=== PATIENT | female | born 1990 | race Caucasian/White ===

== ENCOUNTER 2016-07-23 16:42 | Emergency (ER) ==
[2016-07-23 16:55] VITALS: BP 136/75; TEMP 99.6
[2016-07-23 17:16] LABS: BASOPHILS % (AUTO) 0.4 % (0.0-3.0); EOSINOPHILS # (AUTO) 0.2 K/ul (0.0-0.7); HEMATOCRIT 38.6 % (37.0-47.0); HEMOGLOBIN 13.1 g/dl (12.0-16.0); IMMATURE GRANULOCYTE % (AUTO) 0.5 % (0.0-5.0); LYMPHOCYTES # (AUTO) 1.4 K/uL (0.60-3.4); LYMPHOCYTES % (AUTO) 16.4 (10.0-50.0); MEAN CORPUSCULAR HEMOGLOBIN 30.4 pg (27.0-31.0); MEAN CORPUSCULAR HGB CONC 33.9 (31.8-35.4); MEAN CORPUSCULAR VOLUME 89.6 fl (81.0-99.0); MONOCYTES % (AUTO) 11.9 (0-10); NEUTROPHILS # (AUTO) 5.9 K/ul (2.0-6.9); NEUTROPHILS % (AUTO) 68.8; PLATELET COUNT 353 10^3/uL (140-440); RED BLOOD COUNT 4.31 10^6/ul (4.20-5.40); WHITE BLOOD COUNT 8.52 K/ul (4.6-10.2)
[2016-07-23 17:21] LABS: FLU INTERNAL QC INTERNAL QC VALID; RAPID FLU A POSITIVE (NEGATIVE); RAPID FLU B NEGATIVE (NEGATIVE)
[2016-07-23 17:26] LABS: BILIRUBIN,URINE Negative (NEGATIVE); KETONES,URINE Negative (NEGATIVE); LEUKOCYTE ESTERASE ,URINE 1+ (NEGATIVE); NITRITE,URINE Negative (NEGATIVE); PH,URINE 5.5 (5-9); PROTEIN,URINE Negative (NEGATIVE); URINE, BLOOD Trace-lysed (NEGATIVE)
[2016-07-23 17:29] LABS: ADD URINE MICROSCOPIC YES; URINE PREGNANCY INTERNAL QC INTERNAL QC VALID
[2016-07-23 17:38] LABS: ALBUMIN 3.7 g/dL (3.4-5.0); ALBUMIN/GLOBULIN RATIO 0.8; ANION GAP 12.9; BILIRUBIN,TOTAL 0.56 mg/dL (0.00-1.20); BUN/CREATININE RATIO 8.51; CALCIUM 9.4 mg/dL (8.2-10.2); CREATININE 0.94 mg/dL (0.60-1.30); POTASSIUM 3.9 mmol/L (3.5-5.10); TOTAL PROTEIN 8.3 g/dL (6.4-8.2)
--- NOTE | 2016-07-23 17:45 | DI ---
Exam: Two-view chest x-ray. Date: 07/23/2016. Comparison: None. HISTORY: Cough and fever. FINDINGS: The osseous structures are normal. The lungs are clear with calcified granulomas. The c ardiac silhouette and pulmonary vasculature are normal. Impression: No acute intrathoracic findings. Old granulomatous disease.
--- NOTE | 2016-07-23 18:04 | ED.PDOC ---
General ED Provider: Dr. SUDARSHAN ALEXANDER Chief Complaint: Cough Stated Complaint: cough Time Seen by Physician: 17:00 Mode of Arrival: Walk-In Information Source: Patient Exam Limitations: No limitations Primary Care Provider: NELLIE FOWLER Nursing and Triage Documentation Reviewed and Agree: Yes EENT Complaint Exam - Throat Complaint/Exam Symptoms Are: Still present Timimg: Constant Initial Severity: Mild Current Severity: Mild Alleviating: Reports: None Associated Signs and Symptoms: Reports: Nasal congestion Uvula Midline: Yes Domenica-tonsillar Fluctuence: No Scarlatinaform Rash Present: No Stridor Present: No Sinus Tenderness Present: No Tonsillar Hypertrophy Present: No Tonsillar Exudate Present: No Domenica-tonsillar Swelling Present: No Adenopathy Present: No Review of Systems - Review Of Systems Constitutional: Reports: Fever, Malaise, Weakness Eyes: Reports: No symptoms Ears, Nose, Mouth, Throat: Reports: Throat pain Respiratory: Reports: Cough Cardiac: Reports: No symptoms GI: Reports: No symptoms : Reports: No symptoms Musculoskeletal: Reports: No symptoms Skin: Reports: No symptoms Neurological: Reports: No symptoms Endocrine: Reports: No symptoms Hematologic/Lymphatic: Reports: No symptoms All Other Systems: Reviewed and Negative Past Medical History - Past Medical History Previously Healthy: Yes Endocrine: Reports: None Cardiovascular: Reports: None Respiratory: Reports: None Hematological: Reports: None Gastrointestinal: Reports: None Genitourinary: Reports: None Neuro/Psych: Reports: Anxiety, Depression Musculoskeletal: Reports: None Cancer: Reports: None Last Menstrual Period: jun 27 - Surgical History General Surgical History: Reports: None - Family History Family History: Reports: Unknown - Social History Smoking Status: Never smoker Hx Substance Use: No Alcohol Screening: None Physical Exam - Physical Exam Appearance: Well-appearing, No pain distress, Well-nourished Eyes: MICHAEL, EOMI, Conjunctiva clear ENT: Ears normal, Nose normal, Oropharynx normal Respiratory: Airway patent, Breath sounds clear, Breath sounds equal, Respirations nonlabored Cardiovascular: RRR, Pulses normal, No rub, No murmur GI/: Soft, Nontender, No masses, Bowel sounds normal, No Organomegaly Musculoskeletal: Normal strength, ROM intact, No edema, No calf tenderness Skin: Warm, Dry, Normal color Neurological: Sensation intact, Motor intact, Reflexes intact, Cranial nerves intact, Alert, Oriented Psychiatric: Affect appropriate, Mood appropriate Critical Care Note - Critical Care Note Total Time (mins): 0 Course - Course Hematology/Chemistry: 07/23/16 17:00 07/23/16 17:00 Orders, Labs, Meds: Lab Review 07/23/16 07/23/16 07/23/16 16:55 17:00 17:12 WBC 8.52 RBC 4.31 Hgb 13.1 Hct 38.6 MCV 89.6 MCH 30.4 MCHC 33.9 RDW Coeff of Radha 12.6 Plt Count 353 Immature Gran % (Auto) 0.5 Neut % (Auto) 68.8 Lymph % (Auto) 16.4 Piatt % (Auto) 11.9 H Eos % (Auto) 2.0 Baso % (Auto) 0.4 Immature Gran # (Auto) 0.0 Neut # 5.9 Lymph # 1.4 [place]att # 1.0 Eos # 0.2 Baso # 0.0 Sodium 138 Potassium 3.9 Chloride 106 Carbon Dioxide 23 Anion Gap 12.9 BUN 8 Creatinine 0.94 Estimated GFR (MDRD) 72.00 BUN/Creatinine Ratio 8.51 Glucose 91 Calcium 9.4 Total Bilirubin 0.56 AST 19 ALT 19 Alkaline Phosphatase 76 Total Protein 8.3 H Albumin 3.7 Globulin 4.6 Albumin/Globulin Ratio 0.80 Urine Color Yellow Urine Clarity Slightly Urine pH 5.5 Ur Specific [place] 1.025 Urine Protein Negative Urine Glucose (UA) Negative Urine Ketones Negative Urine Blood Trace-lysed Urine Nitrite Negative Urine Bilirubin Negative Urine Urobilinogen 0.2 Ur Leukocyte Esterase 1+ Urine Microscopic WBC 5-10 Ur Squamous Epith Cells 30-50 Urine Test Negative Influenza A (Rapid) Positive H Influenza B (Rapid) Negative Orders Category Date Time Status BLOOD CULTURE Stat LAB 07/23/16 17:00 Received CBC W/ AUTO DIFF Stat LAB 07/23/16 17:00 Completed COMPREHENSIVE METABOLIC PANEL Stat LAB 07/23/16 17:00 Completed MOLECULAR GROUP A STREP Stat LAB 07/23/16 16:55 Results RAPID FLU A/B Stat LAB 07/23/16 16:55 Completed STREP SCREEN Stat LAB 07/23/16 16:55 Results URINALYSIS C & S IF INDICATED Stat LAB 07/23/16 17:12 Completed URINE CULTURE Routine LAB 07/23/16 17:12 Received URINE Stat LAB 07/23/16 17:12 Completed CHEST, 2 VIEWS PA & LAT Stat RADS 07/23/16 16:47 Completed Vital Signs: Temp Pulse Resp BP Pulse Ox 07/23/16 16:43 99.6 F 112 H 20 136/75 98 Departure - Departure Time of Disposition: 18:03 Disposition: HOME SELF-CARE Discharge Problem: Cough, Influenza A Instructions: Influenza (ED) Condition: Good Pt referred to PMD for follow-up: No Additional Instructions: Please call your Family Physician as soon as possible to schedule a follow-up appointment. Allergies/Adverse Reactions: Allergies No Known Allergies Allergy (Verified 07/23/16 16:47) Home Medications: Ambulatory Orders 1 [No Reported Medications] 07/23/16 Disposition Discussed With: Patient
== END 2016-07-23 18:18 | disposition home or self-care (01) ==
LOC: ED 16:42
DX: J09.X2 Influenza due to identified novel influenza A virus with other respiratory manifestations (principal)
CPT/HCPCS: 36415; 80053; 81001; 81025; 85025; 87040; 87086; 87651; 87804; 87880; 99283

== ENCOUNTER 2017-06-22 14:28 | Emergency (ER) ==
[2017-06-22 14:31] VITALS: BP 147/89; TEMP 98.4; BMI 36.8
--- NOTE | 2017-06-22 16:10 | DI ---
EXAM: Three views of the left ankle. History: Left ankle pain. Findings: No acute fracture or dislocation. No abnormal calcifications or radiopaque foreign bodies . Joint spaces are preserved. Impression: No acute osseous abnormality
--- NOTE | 2017-06-22 16:14 | DI ---
EXAM: Three views of the left foot HISTORY: Left foot pain. COMPARISON: Left ankle x-rays same day FINDINGS: There is no lytic or blastic lesion of the left foot. There is no displaced fracture or di slocation. The joint spaces are unremarkable. The arch is maintained. Soft tissues are unremarkabl e. IMPRESSION: No acute abnormality or displaced fracture of the left foot.
--- NOTE | 2017-06-22 16:24 | ED.PDOC ---
General ED Provider: Dr. SUDARSHAN ALEXANDER Chief Complaint: Ankle Pain/Injury Stated Complaint: ANKLE FOOT PAIN LEFT SIDED Time Seen by Physician: 14:30 Mode of Arrival: Walk-In Information Source: Patient Exam Limitations: No limitations Primary Care Provider: ALBERTO PECK Nursing and Triage Documentation Reviewed and Agree: Yes Reviewed sepsis parameters & appropriate labs ordered?: Yes System Inflammatory Response Syndrome: Not Applicable Sepsis Protocol: For patient's 13 years and over: Temp is 96.8 and below OR 101 and greater Pulse >90 BPM Resp >20/minute Acutely Altered Mental Status Are patient's symptoms suggestive of a new infection, such as: -Pneumonia -Skin, Soft Tissue -Endocarditis -UTI -Bone, Joint Infection -Implantable Device -Acute Abdominal Infection -Wound Infection -Meningitis -Blood Stream Catheter Infection -Unknown System Inflammatory Response Syndrome: Not Applicable Musculoskeletal Complaint Exam - Ankle/Foot Complaint/Exam Location of Injury: Reports: Left, Ankle, Foot Mechanism of Injury: Reports: No known trauma Onset/Duration: CHRONIC WORSE 3 DAYS Symptoms Are: Reports: Still present Onset of Pain: Reports: Weeks Initial Severity: Mild Current Severity: Mild Location: Reports: Discrete Character: Reports: Aching Alleviating: Reports: Rest Aggravating: Reports: Movement Able to Bear Weight: Yes Associated Signs and Symptoms: Denies: Swelling, Redness, Bruising, Fever, Weakness, Numbness, Tingling Gout Risk Factors: Reports: None Achilles Tendon Abnormality: No Tenderness: Present: Lateral malleolus, Midfoot Limited Range of Motion: Present: Inversion Differential Diagnosis: Closed Fracture Review of Systems - Review Of Systems Constitutional: Reports: No symptoms Eyes: Reports: No symptoms Ears, Nose, Mouth, Throat: Reports: No symptoms Respiratory: Reports: No symptoms Cardiac: Reports: No symptoms GI: Reports: No symptoms : Reports: No symptoms Musculoskeletal: Reports: Joint pain Skin: Reports: No symptoms Neurological: Reports: No symptoms Endocrine: Reports: No symptoms Hematologic/Lymphatic: Reports: No symptoms All Other Systems: Reviewed and Negative Past Medical History - Past Medical History Previously Healthy: Yes Endocrine: Reports: None Cardiovascular: Reports: None Respiratory: Reports: None Hematological: Reports: None Gastrointestinal: Reports: None Genitourinary: Reports: None Neuro/Psych: Reports: Anxiety, Depression Musculoskeletal: Reports: None Cancer: Reports: None Last Menstrual Period: now - Surgical History General Surgical History: Reports: None - Family History Family History: Reports: Unknown - Social History Smoking Status: Never smoker Hx Substance Use: No Alcohol Screening: None Physical Exam - Physical Exam Appearance: Well-appearing, No pain distress, Well-nourished Eyes: MICHAEL, EOMI, Conjunctiva clear ENT: Ears normal, Nose normal, Oropharynx normal Respiratory: Airway patent, Breath sounds clear, Breath sounds equal, Respirations nonlabored Cardiovascular: RRR, Pulses normal, No rub, No murmur GI/: Soft, Nontender, No masses, Bowel sounds normal, No Organomegaly Musculoskeletal: Normal strength, ROM intact, No edema, No calf tenderness Skin: Warm, Dry, Normal color Neurological: Sensation intact, Motor intact, Reflexes intact, Cranial nerves intact, Alert, Oriented Psychiatric: Affect appropriate, Mood appropriate Interpretation - Radiology Interpretation Radiology Interpretation By: Radiologist Radiology Results: No acute changes Critical Care Note - Critical Care Note Total Time (mins): 0 Course - Course Orders, Labs, Meds: Orders Category Date Time Status ANKLE, LEFT MIN 3 VIEWS Stat RADS 06/22/17 15:51 Completed FOOT, LEFT 3 VIEWS Stat RADS 06/22/17 15:51 Completed Vital Signs: Temp Pulse Resp BP Pulse Ox 06/22/17 14:29 98.4 F 92 H 20 147/89 H 98 Departure - Departure Time of Disposition: 16:24 Disposition: HOME SELF-CARE Discharge Problem: Ankle pain Instructions: Arthralgia (ED), Ankle Sprain (ED) Condition: Good Pt referred to PMD for follow-up: Yes IPMP verified?: Yes Additional Instructions: Please call your Family Physician as soon as possible to schedule a follow-up appointment. Allergies/Adverse Reactions: Allergies No Known Allergies Allergy (Verified 06/22/17 14:31) Home Medications: Ambulatory Orders Norelgestromin/Ethin.estradiol [Xulane Patch] 1 each TD WEEKLY 06/22/17
== END 2017-06-22 16:49 | disposition home or self-care (01) ==
LOC: ED 14:28
DX: M25.572 Pain in left ankle and joints of left foot (principal)
CPT/HCPCS: 99283

== ENCOUNTER 2017-09-05 16:01 | Outpatient (CLI) | END 2017-09-05 16:02 | disposition home or self-care (01) | LOC: FCC-LAB 16:01 | PROVIDERS: ATTEND Family Medicine | DX: R10.13 Epigastric pain (principal) | CPT/HCPCS: 36415; 80053; 83690; 84443; 85025 ==

== ENCOUNTER 2017-11-06 18:55 | Emergency (ER) ==
[2017-11-06] MEDS ORDERED: SODIUM CHLORIDE 1,000 ML IV STA ×2 (18:57)
[2017-11-06 19:19] VITALS: BP 80/66; TEMP 97.7; BMI 40.4
--- NOTE | 2017-11-06 20:50 | CT ---
EXAM: CT head without contrast. HISTORY: Syncope. PROCEDURE: Contiguous axial CT images of the head without contrast with coronal and sagittal reforma ts. FINDINGS: The ventricles and basal cisterns are normal in size and configuration. No evidence of ma ss or midline shift. No intracranial hemorrhage or evidence of large vessel infarct. No extra-axial fluid collection. The paranasal sinuses and mastoid air cells are well-aerated and normal in appear ance. Impression: Negative CT of the head.
--- NOTE | 2017-11-06 20:55 | ED.PDOC ---
General ED Provider: Dr. CRISTIANO MARTINEZ-ER Chief Complaint: Syncope Stated Complaint: i donated plasma today--ghada been weak and dizzy and passed out since Time Seen by Physician: 19:15 Mode of Arrival: Walk-In Information Source: Patient Exam Limitations: No limitations Primary Care Provider: ALBERTO EPCK Nursing and Triage Documentation Reviewed and Agree: Yes Does patient meet sepsis criteria?: No If yes, has appropriate treatment been initiated?: No System Inflammatory Response Syndrome: Not Applicable Sepsis Protocol: For patient's 13 years and over: Temp is 96.8 and below OR 101 and greater Pulse >90 BPM Resp >20/minute Acutely Altered Mental Status Are patient's symptoms suggestive of a new infection, such as: -Pneumonia -Skin, Soft Tissue -Endocarditis -UTI -Bone, Joint Infection -Implantable Device -Acute Abdominal Infection -Wound Infection -Meningitis -Blood Stream Catheter Infection -Unknown Neurological Complaint Exam - Syncope/Near Syncope Complaint/Exam Onset/Duration: today Symptoms Are: Still present Number of Episodes: 1 Episodes Witnessed: Yes Loss of Consciousness: Yes Associated Head Trauma: No Aggravating: None Alleviating: Reports: Position change Associated Signs and Symptoms: Reports: Lightheadedness, Dizziness, Weakness GI Bleed Risk Factors: Reports: None Dysrhythmia Risk Factors: Reports: None Related Surgical History: Reports: None JVD Present: No Carotid Bruit Present: No Rectal Heme Positive: No Nystagmus Present: No Gag Reflex Present: No Meningeal Signs Positive: No Focal Weakness: Present: None Focal Sensory Loss: Present: None Gait: Normal [id number]: Normal Findings Romberg Test Positive: No Babinski Sign: Negative Right, Negative Left Heel to Toe Normal: No Steve-Hallpike Test Positive: No Differential Diagnoses: Dysrhythmia, Other Quality Indicator For Non-Traumatic Chest Pain/Syncope: EKG Performed Review of Systems - Review Of Systems Constitutional: Reports: No symptoms Eyes: Reports: No symptoms Ears, Nose, Mouth, Throat: Reports: No symptoms Respiratory: Reports: No symptoms Cardiac: Reports: Syncope GI: Reports: No symptoms : Reports: No symptoms Musculoskeletal: Reports: No symptoms, Muscle pain Skin: Reports: No symptoms Neurological: Reports: No symptoms Endocrine: Reports: No symptoms Hematologic/Lymphatic: Reports: No symptoms All Other Systems: Reviewed and Negative Past Medical History - Past Medical History Previously Healthy: Yes Endocrine: Reports: None Cardiovascular: Reports: None Respiratory: Reports: None Hematological: Reports: None Gastrointestinal: Reports: None Genitourinary: Reports: None Neuro/Psych: Reports: Anxiety, Depression Musculoskeletal: Reports: None Cancer: Reports: None Last Menstrual Period: 11/06/17 - Surgical History General Surgical History: Reports: None - Family History Family History: Reports: Unknown - Social History Smoking Status: Never smoker Hx Substance Use: No Alcohol Screening: None - Immunizations Tetanus Shot up to Date: Yes Physical Exam - Physical Exam Appearance: Well-appearing, No pain distress, Well-nourished Eyes: MICHAEL, EOMI, Conjunctiva clear ENT: Ears normal, Nose normal, Oropharynx normal Neck: Supple Respiratory: Airway patent, Breath sounds clear, Breath sounds equal, Respirations nonlabored Cardiovascular: RRR GI/: Soft, Nontender, No masses, Bowel sounds normal, No Organomegaly Musculoskeletal: Normal strength, ROM intact, No edema, No calf tenderness Skin: Warm, Dry, Normal color Neurological: Sensation intact, Motor intact, Reflexes intact, Cranial nerves intact, Alert, Oriented Psychiatric: Affect appropriate, Mood appropriate Interpretation - Radiology Interpretation Radiology Interpretation By: Radiologist Radiology Results: Negative Exam Interpreted: CT Scan - EKG Interpretation Time of EKG #1: 20:55 Rate: Normal Rhythm: Sinus Ectopy: None Vickery: NL ST Segment: Normal Interpretation: nsr Re-Evaluation - Re-Evaluation Time of Re-Evaluation: 20:56 Status: Improved Vital Signs Stable: Yes Pain Level: 0 Appearance: NAD Lungs: Clear Skin: Warm and Dry Neuro: Alert and Oriented X3 CV: RRR Critical Care Note - Critical Care Note Total Time (mins): 0 Course - Course Hematology/Chemistry: 11/06/17 19:07 11/06/17 19:07 Orders, Labs, Meds: Lab Review 11/06/17 11/06/17 11/06/17 19:07 19:07 19:07 WBC 18.44 H RBC 4.51 Hgb 13.8 Hct 39.8 MCV 88.2 MCH 30.6 MCHC 34.7 RDW Coeff of Radha 12.5 Plt Count 352 Immature Gran % (Auto) 0.3 Neut % (Auto) 84.8 Lymph % (Auto) 11.2 [place] % (Auto) 3.3 Eos % (Auto) 0.1 Baso % (Auto) 0.3 Immature Gran # (Auto) 0.1 Neut # (Auto) 15.6 H Lymph # (Auto) 2.1 [place] # (Auto) 0.6 Eos # (Auto) 0.0 Baso # (Auto) 0.1 Sodium 136 Potassium 3.6 Chloride 109 H Carbon Dioxide 19 L Anion Gap 11.6 BUN 13 Creatinine 0.70 Estimated GFR (MDRD) 100.00 BUN/Creatinine Ratio 18.57 Glucose 148 H Calcium 8.5 Total Bilirubin 0.5 AST 13 L ALT 16 Alkaline Phosphatase 46 Total Creatine Kinase 44 Troponin I < 0.0100 Total Protein 6.6 Albumin 2.9 L Globulin 3.7 Albumin/Globulin Ratio 0.78 Serum , Qual Negative Urine Color Urine Clarity Urine pH Ur Specific [place] Urine Protein Urine Glucose (UA) Urine Ketones Urine Blood Urine Nitrite Urine Bilirubin Urine Urobilinogen Ur Leukocyte Esterase 11/06/17 20:25 WBC RBC Hgb Hct MCV MCH MCHC RDW Coeff of Radha Plt Count Immature Gran % (Auto) Neut % (Auto) Lymph % (Auto) [place] % (Auto) Eos % (Auto) Baso % (Auto) Immature Gran # (Auto) Neut # (Auto) Lymph # (Auto) [place] # (Auto) Eos # (Auto) Baso # (Auto) Sodium Potassium Chloride Carbon Dioxide Anion Gap BUN Creatinine Estimated GFR (MDRD) BUN/Creatinine Ratio Glucose Calcium Total Bilirubin AST ALT Alkaline Phosphatase Total Creatine Kinase Troponin I Total Protein Albumin Globulin Albumin/Globulin Ratio Serum , Qual Urine Color Yellow Urine Clarity Clear Urine pH 5.5 Ur Specific [place] 1.020 Urine Protein Negative Urine Glucose (UA) Negative Urine Ketones Negative Urine Blood Negative Urine Nitrite Negative Urine Bilirubin Negative Urine Urobilinogen 0.2 Ur Leukocyte Esterase Negative Orders Category Date Time Status EKG-(ED ONLY) Stat CARDIO 11/06/17 18:56 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] .ONCE EMERGENCY 11/06/17 18:56 Active ED IV/MEDIPORT/POWERPORT .ONCE EMERGENCY 11/06/17 18:56 Active CBC W/ AUTO DIFF Stat LAB 11/06/17 19:07 Completed COMPREHENSIVE METABOLIC PANEL Stat LAB 11/06/17 19:07 Completed CREATINE KINASE Stat LAB 11/06/17 19:07 Completed SERUM Stat LAB 11/06/17 19:07 Completed TROPONIN I Stat LAB 11/06/17 19:07 Completed URINALYSIS C & S IF INDICATED Stat LAB 11/06/17 20:25 Completed 0.9 % Sodium Chloride [Saline Flush] MEDS 11/06/17 18:56 Ordered 1 syr IVF PRN PRN Sodium Chloride 0.9% [Sodium Chloride] 1,000 ml MEDS 11/06/17 18:57 Discontinued IV BOLUS Sodium Chloride 0.9% [Sodium Chloride] 1,000 ml MEDS 11/06/17 18:[address] HEAD W/O CONTRAST Stat RADS 11/06/17 20:02 Completed Medications Generic Name Dose Route Start Last Admin Trade Name Freq PRN Reason Stop Dose Admin Sodium Chloride 1 syr 11/06/17 18:56 11/06/17 19:20 Saline Flush IVF 1 syr PRN PRN Administration To flush IV Discontinued Medications Generic Name Dose Route Start Last Admin Trade Name Freq PRN Reason Stop Dose Admin Sodium Chloride 1,000 mls @ 1,000 mls/hr 11/06/17 18:57 11/06/17 19:00 Sodium Chloride IV 11/06/17 19:56 1,000 mls/hr BOLUS STA Administration Sodium Chloride 1,000 mls @ 1,000 mls/hr 11/06/17 18:57 11/06/17 19:53 Sodium Chloride IV 11/06/17 19:56 1,000 mls/hr BOLUS STA Administration Vital Signs: Temp Pulse Resp BP Pulse Ox 11/06/17 19:11 97.7 F 97 H 20 80/66 L 97 Departure - Departure Time of Disposition: 20:56 Disposition: HOME SELF-CARE Discharge Problem: Syncope, Hypovolemia Instructions: Syncope (ED) Condition: Good Pt referred to PMD for follow-up: Yes IPMP verified?: No Additional Instructions: incraease fluids and salt intake over next 2-3 days--f/u with pcp Allergies/Adverse Reactions: Allergies No Known Allergies Allergy (Verified 11/06/17 20:26) Home Medications: Ambulatory Orders 1 [No Reported Medications] 11/06/17 Disposition Discussed With: Patient, Family
== END 2017-11-06 21:12 | disposition home or self-care (01) ==
LOC: ED 18:55
DX: R55 Syncope and collapse (principal); E86.1 Hypovolemia
CPT/HCPCS: 36415; 80053; 81001; 82550; 84484; 84703; 85025; 93005; 93010; 96360; 96361; 99284; 99285

== ENCOUNTER 2017-11-25 14:09 | Emergency (ER) ==
[2017-11-25 14:14] VITALS: BP 135/87; TEMP 99.4; BMI 38.9
[2017-11-25] MEDS ORDERED: TORADOL IM STA (14:30)
--- NOTE | 2017-11-25 14:35 | ED.PDOC ---
General ED Provider: Dr. CRISTIANO ALEXANDRE Chief Complaint: Back Pain Stated Complaint: Lower back and hip pain: Onset past 2 days and now experiencing pain shooting down Lt posterior gluteal region into posterior lateral thigh. Denies discomfort in calf or foot. No bowel or bladder dysfunction Time Seen by Physician: 14:15 Mode of Arrival: Walk-In Information Source: Patient Exam Limitations: No limitations Primary Care Provider: ALBERTO PECK Nursing and Triage Documentation Reviewed and Agree: Yes Does patient meet sepsis criteria?: No System Inflammatory Response Syndrome: Not Applicable Sepsis Protocol: For patient's 13 years and over: Temp is 96.8 and below OR 101 and greater Pulse >90 BPM Resp >20/minute Acutely Altered Mental Status Are patient's symptoms suggestive of a new infection, such as: -Pneumonia -Skin, Soft Tissue -Endocarditis -UTI -Bone, Joint Infection -Implantable Device -Acute Abdominal Infection -Wound Infection -Meningitis -Blood Stream Catheter Infection -Unknown Musculoskeletal Complaint Exam - Back Pain Complaint/Exam Mechanism of Injury: Reports: No known trauma Onset/Duration: 2 days Symptoms Are: Still present Timing: Constant Episodes Lasting: Days (2) Initial Severity: Mild Current Severity: Moderate Location: Reports: Diffuse Character: Reports: Sharp, Dull, Aching, Spasmodic, Stiffness, Burning Aggravating: Reports: Movements, Lifting, Bending, Walking Alleviating: Reports: Rest Associated Signs and Symptoms: Reports: Tingling. Denies: Swelling, Redness, Bruising, Fever, Weakness, Numbness, Abdominal pain, Flank pain, Bladder incontinence, Bowel incontinence, Weight loss, Pain with weight bearing TAD Risk Factors: Reports: None AAA Risk Factors: Reports: None Cauda Equina Risk Factors: Reports: None Epidural Abcess Risk Factors: Reports: None Related Surgical History: Reports: None Focal Tenderness: Yes Paraspinal Muscle Tenderness: Yes Paraspinal Muscle Spasm: Yes Scoliosis: No Lordosis: No Kyphosis: No SLR Test: Right Negative, Left Positive Hip Motion Testing Pain: Right Negative, Left Positive Focal Weakness: Present: None Focal Sensory Loss: Present: None Gait: Present: Normal Differential Diagnoses: Herniated Disk, Strain, Sprain Review of Systems - Review Of Systems Constitutional: Reports: No symptoms Eyes: Reports: No symptoms Ears, Nose, Mouth, Throat: Reports: No symptoms Respiratory: Reports: No symptoms Cardiac: Reports: No symptoms GI: Reports: No symptoms : Reports: No symptoms Musculoskeletal: Reports: No symptoms, Back pain, Joint pain Skin: Reports: No symptoms Neurological: Reports: No symptoms Endocrine: Reports: No symptoms Hematologic/Lymphatic: Reports: No symptoms All Other Systems: Reviewed and Negative Past Medical History - Past Medical History Endocrine: Reports: None Cardiovascular: Reports: None Respiratory: Reports: None Hematological: Reports: None Gastrointestinal: Reports: None Genitourinary: Reports: None Neuro/Psych: Reports: Anxiety, Depression Musculoskeletal: Reports: None Cancer: Reports: None Last Menstrual Period: 3 weeks ago - Surgical History General Surgical History: Reports: None - Family History Family History: Reports: Unknown - Social History Smoking Status: Never smoker Hx Substance Use: No Alcohol Screening: None - Immunizations Tetanus Shot up to Date: Yes Physical Exam - Physical Exam Appearance: Well-appearing, No pain distress, Well-nourished Eyes: MICHAEL, EOMI, Conjunctiva clear ENT: Ears normal, Nose normal, Oropharynx normal Respiratory: Airway patent, Breath sounds clear, Breath sounds equal, Respirations nonlabored Cardiovascular: RRR, Pulses normal, No rub, No murmur GI/: Soft, Nontender, No masses, Bowel sounds normal, No Organomegaly Musculoskeletal: Normal strength, ROM intact, No edema, No calf tenderness, Limited ROM (restricted movement LT LS region focalized tenderness over LT SI/ L5 S1 region ) Skin: Warm, Dry, Normal color Neurological: Sensation intact, Motor intact, Reflexes intact, Cranial nerves intact, Alert, Oriented Psychiatric: Affect appropriate, Mood appropriate Critical Care Note - Critical Care Note Total Time (mins): 0 Course - Course Hematology/Chemistry: 11/25/17 14:43 11/25/17 14:43 Orders, Labs, Meds: Lab Review 11/25/17 11/25/17 11/25/17 14:30 14:43 14:43 WBC 8.62 RBC 3.81 L Hgb 11.6 L Hct 33.6 L MCV 88.2 MCH 30.4 MCHC 34.5 RDW Coeff of Radha 12.6 Plt Count 391 Immature Gran % (Auto) 0.1 Neut % (Auto) 68.5 Lymph % (Auto) 26.0 [place] % (Auto) 4.6 Eos % (Auto) 0.6 Baso % (Auto) 0.2 Immature Gran # (Auto) 0.0 Neut # (Auto) 5.9 Lymph # (Auto) 2.2 [place] # (Auto) 0.4 Eos # (Auto) 0.1 Baso # (Auto) 0.0 Sodium 133 L Potassium 3.8 Chloride 108 H Carbon Dioxide 20 L Anion Gap 8.8 BUN 11 Creatinine 0.69 Estimated GFR (MDRD) 102.00 BUN/Creatinine Ratio 15.94 Glucose 81 Calcium 8.8 Total Bilirubin 0.4 AST 18 ALT 21 Alkaline Phosphatase 43 Total Creatine Kinase 56 Total Protein 7.2 Albumin 3.1 L Globulin 4.1 Albumin/Globulin Ratio 0.76 Urine Color Urine Clarity Urine pH Ur Specific [place] Urine Protein Urine Glucose (UA) Urine Ketones Urine Blood Urine Nitrite Urine Bilirubin Urine Urobilinogen Ur Leukocyte Esterase Urine Microscopic WBC Ur Squamous Epith Cells Urine Test Negative 11/25/17 14:43 WBC RBC Hgb Hct MCV MCH MCHC RDW Coeff of Radha Plt Count Immature Gran % (Auto) Neut % (Auto) Lymph % (Auto) [place] % (Auto) Eos % (Auto) Baso % (Auto) Immature Gran # (Auto) Neut # (Auto) Lymph # (Auto) [place] # (Auto) Eos # (Auto) Baso # (Auto) Sodium Potassium Chloride Carbon Dioxide Anion Gap BUN Creatinine Estimated GFR (MDRD) BUN/Creatinine Ratio Glucose Calcium Total Bilirubin AST ALT Alkaline Phosphatase Total Creatine Kinase Total Protein Albumin Globulin Albumin/Globulin Ratio Urine Color Yellow Urine Clarity Clear Urine pH 5.5 Ur Specific [place] 1.025 Urine Protein Negative Urine Glucose (UA) Negative Urine Ketones Trace Urine Blood Negative Urine Nitrite Negative Urine Bilirubin Negative Urine Urobilinogen 0.2 Ur Leukocyte Esterase Trace Urine Microscopic WBC 5-10 Ur Squamous Epith Cells 20-30 Urine Test Orders Category Date Time Status CBC W/ AUTO DIFF Stat LAB 11/25/17 14:43 Completed CMP [COMPREHENSIVE METABOLIC PANEL] Stat LAB 11/25/17 14:43 Completed CPK [CREATINE KINASE] Stat LAB 11/25/17 14:43 Completed TEST URINE [URINE ] Stat LAB 11/25/17 14:30 Completed UA [URINALYSIS C & S IF INDICATED] Stat LAB 11/25/17 14:43 Completed URINE CULTURE Stat LAB 11/25/17 14:43 Received Ketorolac Tromethamine [Toradol] MEDS 11/25/17 14:30 Discontinued 30 mg IM ONCE STA CT LUMBAR SPINE W/O CONTRAST Stat RADS 07/15/18 14:27 Completed Medications Discontinued Medications Generic Name Dose Route Start Last Admin Trade Name Tiffani PRN Reason Stop Dose Admin Ketorolac Tromethamine 30 mg 11/25/17 14:30 11/25/17 14:35 Toradol IM 11/25/17 14:31 30 mg ONCE STA Administration Vital Signs: Temp Pulse Resp BP Pulse Ox 11/25/17 14:10 99.4 F 99 H 16 135/87 97 Departure - Departure Time of Disposition: 17:00 Disposition: HOME SELF-CARE Discharge Problem: Low back pain, Lumbar discogenic pain syndrome Instructions: Acute Low Back Pain (ED), Low Back Strain (ED), Sciatica (ED), Lower Back Exercises (ED) Condition: Good Pt referred to PMD for follow-up: Yes (PCP) IPMP verified?: No Additional Instructions: Take Ibuprofen 200 mg 1-2 tabs four times daily for mild to moderate pain and use norco for severe pain Appy warm moist heat to area of discomfort Allergies/Adverse Reactions: Allergies No Known Allergies Allergy (Verified 11/06/17 20:26) Home Medications: Ambulatory Orders Cyclobenzaprine HCl [Flexeril] 5 mg PO BID #10 tablet 11/25/17 Hydrocodone/Acetaminophen [Bruno 5-325 Tablet] 1 each PO Q6HR PRN #14 tablet Prednisone 10 mg PO DIRECTED #20 tablet 11/25/17 Disposition Discussed With: Patient
--- NOTE | 2017-11-25 15:59 | CT ---
Exam: CT lumbar spine without intravenous contrast. Comparison: None available. Reason for exam: Pain with radiculopathy. FINDINGS: No acute fracture or listhesis. The vertebral body and intervertebral body disc space heights are re latively well maintained. T12-L1: No significant central canal or foraminal narrowing. L1-L2: No significant central canal or foraminal narrowing. L2-L3: No significant central canal or foraminal narrowing. L3-L4: Broad-based disc bulge with impression on the thecal sac with mild central canal and foramina l narrowing. L4-L5: Broad-based disc bulge with impression on the thecal sac resulting in mild to moderate centra l canal and foraminal narrowing. L5-S1: Broad-based disc bulge with impression on the thecal sac resulting in mild to moderate centra l canal and foraminal narrowing. Impression: 1. No acute fracture or listhesis in the lumbar spine. 2. Multilevel mild discogenic disease. If clinical concern exists for radiculopathy or myelopathy, MRI could be performed for further characterization.
== END 2017-11-25 17:16 | disposition home or self-care (01) ==
LOC: ED 14:09
DX: M54.5 Low back pain (principal); M51.36 Other intervertebral disc degeneration, lumbar region
CPT/HCPCS: 36415; 80053; 81001; 81025; 82550; 85025; 87086; 96372; 99283

== ENCOUNTER 2018-05-03 14:00 | Outpatient (RCR) ==
[2018-03-26 16:46] VITALS: BMI 37.7
== END 2018-05-13 23:59 ==
PROVIDERS: ATTEND Family Medicine
DX: S39.012D Strain of muscle, fascia and tendon of lower back, subsequent encounter (principal); S76.012D Strain of muscle, fascia and tendon of left hip, subsequent encounter; M54.17 Radiculopathy, lumbosacral region; M62.89 Other specified disorders of muscle